=== PATIENT | female | born 1950 | race Caucasian/White ===

== ENCOUNTER 2024-05-27 11:59 | Emergency (ER) | payer MEDICARE, OTHER, SELFPAY ==
[2024-05-27 12:01] VITALS: BP 136/82
[2024-05-27 12:42] LABS: % Basophils 0.8 % (0-2); % Eosinophils 2.6 % (0-6); % Immature Granulocytes 0.2 % (0-0.5); % Lymphocytes 29.9 % (20.5-51.1); % Monocytes 10.9 % (1.7-9.3); % Neutrophils 55.6 % (42.2-75.2); Absolute Basophils 0.1 10^3/uL (0-0.2); Absolute Eosinophils 0.2 10^3/uL (0-0.7); Absolute Lymphocytes 1.8 10^3/uL (1.2-3.4); Absolute Monocytes 0.7 10^3/uL (0.1-0.6); Absolute Neutrophils 3.4 10^3/uL (1.4-6.5); Hematocrit 38.2 % (37.0-47.0); Hemoglobin 13.2 g/dL (12.0-16.0); Mean Corp Hgb Conc. 34.6 g/dL (33.0-37.0); Mean Corpuscular Hgb 29.3 pg (27.0-31.0); Mean Corpuscular Volume 84.9 fL (81.0-99.0); Mean Platelet Volume 9.3 fL (7.4-10.4); Nucleated Red Blood Cells % 0 %; Platelet Count 174 10^3/uL (130-400); White Blood Cell Count 6.1 10^3/uL (4.8-10.8)
[2024-05-27 12:46] LABS: Urine Albumin Trace (Neg - Trace); Urine Bilirubin 1+ (Negative); Urine Character Slightly Cloudy (Clear); Urine Color Yellow; Urine Glucose Negative (Negative); Urine Ketone Negative (Negative); Urine Leukocyte 2+ (Negative); Urine Nitrite Positive (Negative); Urine Occult Blood Negative (Negative); Urine Urobilinogen Negative (Neg - 1+)
[2024-05-27 13:09] LABS: ALT (SGPT) 18 U/L (0-35); AST (SGOT) 24 U/L (14-36); Albumin 4.2 g/dl (3.5-5.0); Alkaline Phosphatase 48 U/L (38-126); Blood Urea Nitrogen 14 mg/dl (7-17); Calcium 9.2 mg/dl (8.4-10.2); Carbon Dioxide 27 mmol/L (22-30); Chloride 104 mmol/L (98-107); Glucose 132 mg/dl (70-99); Sodium 137 mmol/L (135-145); Total Bilirubin 0.8 mg/dl (0.2-1.3); Total Protein 6.7 g/dl (6.3-8.2); eGFR > 60.00
--- NOTE | 2024-05-27 13:50 | ED.GENMED ---
History of Present Illness
General
Chief Complaint: Flank Pain
Source: patient
Exam Limitations: none
Time Seen by Provider: 05/27/24 12:46
Nursing documentation reviewed up to this point in time: agreed with
History of Present Illness
History of Present Illness:
74 yr. 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 Patient has had pain in her left
back/flank area for the past 2 weeks getting progressively worse for the past couple days. She does feel slight short of breath with it. She denies any chest pain. No prior history of PE she reports it is worse wit position changes sitting to
standing twisting turning. She denies any injury. She has chronic rash to her back this is not new she picks at the rash and is not healing. 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 She was
recommended to come to the ER for imaging.
She denies any recent fever chills nausea vomiting urinary frequency urgency or dysuria. No prior history of UTI.
Past History
Past History
ED Past Medical History: GERD, HTN and Hypercholesterolemia
ED Past Surgical History: None
Social History
Tobacco: Non-smoker
Alcohol: None
Drug: None
Personal:
Living: with family
Family History
Family History: CAD and Other
Review of Systems
Review of Systems
Allergies reviewed?: Yes
All Other Systems: ROS reviewed and negative except as documented in HPI and ROS
Constitutional: Reports no symptoms; Denies fever, fatigue or chills
EENT: Reports no symptoms
Respiratory: Reports trouble breathing (short of breath with back pain )
Cardiac: Reports no symptoms
ABD/GI: Reports no symptoms
: Reports no symptoms
Musculoskeletal: Reports back pain (left sided back pain )
Skin: Reports no symptoms
Neurological: Reports no symptoms
Psychiatric: Reports no symptoms
Phy Exam
General Physical Exam
General Presentation: no apparent distress
General age: appears stated age
General Skin: warm and dry
General Habitus: normal
General Mental: alert
General Hydration: appears well hydrated
Cardiovascular Exam
Cardiovascular Exam: regular rate/rhythm, no murmur and normal peripheral pulses
Pulmonary Exam
Pulmonary Exam: lungs clear and no respiratory distress
Neurological Exam
Neurological Exam: alert and oriented x3
Marilyn Coma Scale
Eye Opening: Spontaneous
Verbal Response: Oriented
Motor Response: Obeys Commands
GCS Total Score: 15
Musculoskeletal Exam
Musculoskeletal Exam: full ROM
Skin Exam
Skin Exam: normal color, warm/dry and other (+ scattered rash /abrasions to back across midline )
Psychiatric Exam
Psychiatric Exam: normal mood/affect
Course
Orders/Labs/Results
Orders:
Orders
05/27/24 12:34
Complete Blood Count/With Diff Urgent
Comprehensive Metabolic Panel Urgent
Urinalysis Reflex To Culture Urgent
Date Specimen was Collected: 05/27/24
Time Specimen was Collected: 12:34
Urine Microscopic Reflex Cult Urgent
Urine Culture Urgent
CHRIS Source: U
Specimen Description:
Date Specimen was Collected: 05/27/24
Time Specimen was Collected: 12:34
05/27/24 14:03
CT Chest Pe Study Urgent
Comment:
Reason For Exam: right back/flank pain hx of metastatic breast ca
05/27/24 15:05
Ketorolac [Toradol] 15 mg IV NOW STA
diazePAM [Valium Injection] 2 mg IV NOW STA
05/27/24 16:09
CT Abd/pel Without Iv Or Oral Urgent
Comment:
Reason For Exam: right back/flank pain
05/27/24 18:23
Cefdinir [Omnicef] 300 mg PO NOW STA
Abnormal Lab Results
05/27/24
12:34
Absolute Monos (auto) 0.7 H 10^3/uL
(0.1-0.6)
Monocytes % 10.9 H %
(1.7-9.3)
Glucose 132 H mg/dl
(70-99)
Urine Nitrite (Reflex) Positive A
(Negative)
Urine Bilirubin 1+ A
(Negative)
Leukocyte Esterase Rfl 2+ A
(Negative)
Urine WBC (Reflex) 16-20 A /HPF
(0-5)
Urine Bacteria (Reflex) Many A
(Negative)
05/27/24 12:34
05/27/24 12:34
Vital Signs
Initial and Last Documented VS:
Initial Vital Signs
Temp Pulse Resp BP Pulse Ox
98.6 F 78 18 136/82 96
05/27/24 12:01 05/27/24 12:01 05/27/24 12:01 05/27/24 12:01 05/27/24 12:01
Last Documented Vital Signs
Temp Pulse Resp BP Pulse Ox
98.6 F 71 18 145/71 96
05/27/24 12:01 05/27/24 18:24 05/27/24 18:24 05/27/24 18:24 05/27/24 18:24
MDM/Problems Addressed
MDM/Problems Addressed:
Patient is a 74-year-old female with metastatic breast cancer presents to the ER with right-sided back pain. Triage note documents flank pain pain is in the right lateral thoracic area/flank. She denies any injury but pain is made worse with
twisting turning changing positions sitting to standing. She does mention some shortness of breath with the pain. With history of metastatic breast cancer PE study was done and negative. Radiology did mention no blastic or lytic lesions. Patient
denies any fever chills nausea vomiting abdominal pain. She denies any new frequency urgency or dysuria. Urine does however show 16�20 white blood cells 0�2 RBCs and nitrates .
PT did receive Valium and Toradol here feeling better likely musculoskeletal symptoms however with urine results will do non contrast CT stone to ensure no stone .
1610: Care of pt at this time transferred to [facility]
*Radiology
Radiology exam reviewed: radiology read reviewed
*Pulse Oximetry
Patient hypoxic: no
*Critical Care Note
Total Time (30-74mins, 75-104mins- exclusive of procedures): Not Applicable
ED Attending Note
-
Portions of this chart may have been created with voice recognition software.� Occasional wrong word or��sound alike� substitutions may have occurred due to the inherent limitations of voice recognition software.
Discharge Plan
Departure
Patient Disposition: Home (Routine Discharge)
Date of Disposition: 05/27/24
Time of Disposition: 18:18
Patient with high blood pressure during this ER visit?: No
Condition: Fair
Covid-19: Not Applicable
Discharge Problem:
Back pain, UTI (urinary tract infection)
Instructions: Low Back Pain (DC), Urinary Tract Infection, Adult ED
Prescriptions:
New
cefdinir 300 mg capsule
300 mg PO BID Qty: 14 0RF
diazepam [Valium] 5 mg tablet
5 mg PO HS PRN (Reason: muscle spasm) Qty: 7 0RF
No Action
citalopram 20 MG tablet
20 mg PO DAILY
lisinopril 40 MG tablet
40 mg PO DAILY
simvastatin 20 MG tablet
20 mg PO DAILY
Mounjaro 5 mg/0.5 mL Pen Injector
5 mg SC QWEEK
omeprazole
1 tab PO DAILY
amlodipine
5 mg PO DAILY
aspirin [Aspir-81] 81 mg Tablet,Delayed Release (Dr/Ec)
81 mg PO DAILY
rosuvastatin [Crestor] 20 mg Tablet
20 mg PO DAILY
Referrals:
Natasha Story MD [Family Provider] - Follow up in 2-3 days
Activity Restrictions/Additional Instructions:
YOUR SYMPTOMS MAY BE MUSCULAR
TRY MOTRIN 400 MG 2-3 TIMES A DAY WITH FOOD NEEDED FOR PAIN
AT NIGHT YOU CAN TRY MUSCLE RELAXER VALIUM 5 MG NEEDED, IT WILL MAKE YOU SLEEPY
YOU CAN CUT THE TAB IN HALF IF YOU'D LIKE
TO TREAT YOUR URINE, TAKE CEFDINIR 300 MG TWICE A DAY FOR 7 DAYS
YOU CAN USE A PROBIOTIC OR EAT YOGURT WHILE ON ANTIBIOTICS.
WE WILL CALL YOU IF WE NEED TO SWITCH THE ANTIBIOTIC.
RETURN FOR: SEVERE PAIN, FEVER, VOMITING, TROUBLE BREATHING, WEAKNESS OR ANY CONCERNS
Interventions
Interventions:
*Risk Screen - Suicide Last Done: 05/27/24 12:01
*General Assessment Last Done: 05/27/24 12:01
*Neglect/Abuse Screening Last Done: 05/27/24 12:01
ED- Fall Risk Assessment Last Done: 05/27/24 18:38
*ED COVID-19 Vaccine History Last Done: 05/27/24 12:01
*Nursing Disposition Last Done: 05/27/24 18:38
GX-Sorlbi-Faqszsdjyr Assessment Last Done: 05/27/24 12:59
ED-Female Genitourinary Assessment Last Done: 05/27/24 13:00
Discharge Date and Time
Discharge Date/Time: 05/27/24 18:39
Print Language: GREENLANDIC
[2024-05-27 14:18] LABS: Urine Mucus Moderate
[2024-05-27 14:20] LABS: Urine Amorphous Seen; Urine Red Blood Cell 0-2 /HPF (0-2); Urine White Cell 16-20 /HPF (0-5)
[2024-05-27 14:21] LABS: Urine Bacteria Many (Negative)
[2024-05-27] MEDS: TORADOL 15 MG IV (15:10)
[2024-05-27] MEDS: VALIUM INJECTION 2 MG IV (15:10)
[2024-05-27 18:24] VITALS: BP 145/71
== END 2024-05-27 18:39 | disposition home or self-care (01) ==
LOC: EMR 11:59
PROVIDERS: EMERGENCY PHYSICIAN Emergency Medicine; FAMILY PHYSICIAN Internal Medicine
DX: M54.6 Pain in thoracic spine (principal); R06.02 Shortness of breath; R10.9 Unspecified abdominal pain; R21 Rash and other nonspecific skin eruption; E11.9 Type 2 diabetes mellitus without complications; K21.9 Gastro-esophageal reflux disease without esophagitis; I10 Essential (primary) hypertension; E78.00 Pure hypercholesterolemia, unspecified; Z85.3 Personal history of malignant neoplasm of breast; C79.51 Secondary malignant neoplasm of bone; Z79.4 Long term (current) use of insulin
CPT/HCPCS: 99285; 96374; 96375; 71275; 74176; 80053; 81003; 81015; 85025; 87086; Q9967

== ENCOUNTER 2024-08-24 09:53 | Outpatient (RCR) | payer MEDICARE, OTHER, SELFPAY | END 2024-08-24 23:59 | disposition home or self-care (01) | LOC: RPT 09:53 | PROVIDERS: ATTENDING PHYSICIAN Physician Assistant; FAMILY PHYSICIAN Internal Medicine | DX: I97.2 Postmastectomy lymphedema syndrome (principal); C50.911 Malignant neoplasm of unspecified site of right female breast; M60.88 Other myositis, other site; M54.9 Dorsalgia, unspecified; C79.51 Secondary malignant neoplasm of bone; M51.34 Other intervertebral disc degeneration, thoracic region; L90.5 Scar conditions and fibrosis of skin; Z73.6 Limitation of activities due to disability | CPT/HCPCS: 97163; 97535 ==

== ENCOUNTER → 2024-09-27 08:29 | Outpatient (REF) | payer MEDICARE, OTHER, SELFPAY | LOC: HWRAD 08:29 | PROVIDERS: ATTENDING PHYSICIAN Obstetrics & Gynecology; FAMILY PHYSICIAN Internal Medicine | DX: N95.0 Postmenopausal bleeding (principal) | CPT/HCPCS: 76830; 76856 ==

== ENCOUNTER → 2024-09-30 07:54 | Outpatient (REF) | payer MEDICARE, OTHER, SELFPAY | LOC: HWRAD 07:54 | PROVIDERS: ATTENDING PHYSICIAN Obstetrics & Gynecology; FAMILY PHYSICIAN Internal Medicine | DX: Z78.0 Asymptomatic menopausal state (principal) | CPT/HCPCS: 77080 ==

== ENCOUNTER 2024-09-30 10:58 | Outpatient (RCR) | payer MEDICARE, OTHER, SELFPAY | END 2024-09-30 23:59 | disposition home or self-care (01) | LOC: RPT 10:58 | PROVIDERS: ATTENDING PHYSICIAN Physician Assistant; FAMILY PHYSICIAN Internal Medicine | DX: I97.2 Postmastectomy lymphedema syndrome (principal); C50.911 Malignant neoplasm of unspecified site of right female breast; M60.88 Other myositis, other site; M54.9 Dorsalgia, unspecified; M51.34 Other intervertebral disc degeneration, thoracic region; L90.5 Scar conditions and fibrosis of skin; Z73.6 Limitation of activities due to disability | CPT/HCPCS: 97110; 97112; 97140; 97535 ==

== ENCOUNTER 2024-11-12 06:55 | Day surgery (SDC) | payer MEDICARE, OTHER, SELFPAY ==
[2024-11-12 07:15] VITALS: BP 128/70
[2024-11-12 07:23] VITALS: BMI 31.0
[2024-11-12 07:24] VITALS: BMI 31.0
[2024-11-12 07:24] LABS: Glucose - Point of Care 154 mg/dl (70-99)
[2024-11-12 08:21] VITALS: BP 131/73
[2024-11-12 08:30] VITALS: BP 127/84
[2024-11-12 08:46] VITALS: BP 135/67
== END 2024-11-12 08:50 | disposition home or self-care (01) ==
LOC: SDS 06:55
PROVIDERS: ATTENDING PHYSICIAN Internal Medicine
DX: K22.2 Esophageal obstruction (principal); K44.9 Diaphragmatic hernia without obstruction or gangrene; K31.7 Polyp of stomach and duodenum; R13.10 Dysphagia, unspecified
CPT/HCPCS: 43249; 82962; C1726

== ENCOUNTER → 2024-12-09 09:07 | Outpatient (REF) | payer MEDICARE, OTHER, SELFPAY | LOC: RCS 09:07 | PROVIDERS: ATTENDING PHYSICIAN Internal Medicine Cardiovascular Disease; FAMILY PHYSICIAN Internal Medicine | DX: I35.0 Nonrheumatic aortic (valve) stenosis (principal) | CPT/HCPCS: 93306 ==

== ENCOUNTER → 2025-11-14 12:55 | Outpatient (REF) | payer MEDICARE, OTHER, SELFPAY | LOC: HWRCS 12:55 | PROVIDERS: ATTENDING PHYSICIAN Internal Medicine Cardiovascular Disease; FAMILY PHYSICIAN Internal Medicine | DX: I35.0 Nonrheumatic aortic (valve) stenosis (principal) | CPT/HCPCS: 93306 ==